=== PATIENT | female | born 1980 | race African-American/Black ===

== ENCOUNTER 2020-04-11 15:45 | Emergency (ER) | payer MEDICAID ==
[~2020-04-11] VITALS: Ht 165.1 cm; Wt 145.1 kg
[~2020-04-11 15:45] MED LIST: BACTRIM DS TAB1 EAC1 ORAL; IBUPROFEN600 MG ORAL; NKM; PRENATAL MULTI1 EAC1 PO
[2020-04-11 15:48] VITALS: BP 175/94
--- NOTE | 2020-04-11 16:00 | NUR ---
pt stated that she started spotting blood about a week ago, the last 3 days she has been having abdominal cramps. she has been to the dr and has taken 2 preg tests that has been positive. pt stated that her dr couldn't tell how far along she was cause her numbers were low.
[2020-04-11 16:54] LABS: ANION GAP 10 mmol/L (5-15); BLOOD UREA NITROGEN 11 mg/dL (7-18); CALCIUM 9.3 MG/DL (8.5-10.1); CARBON DIOXIDE 24 MMOL/L (21-32); CHLORIDE 105 MMOL/L (98-107); CREATININE 0.8 MG/DL (0.55-1.30); POTASSIUM 4.1 MMOL/L (3.5-5.1); SODIUM 139 MMOL/L (136-145)
--- NOTE | 2020-04-11 16:54 | Diagnostic Imaging Report ---
EXAM: US First Trimester , Transabdominal and Transvaginal CLINICAL HISTORY: PAIN TECHNIQUE: Real-time transabdominal and transvaginal obstetrical ultrasound of the maternal pelvis and a first trimester with image documentation. Transvaginal imaging was used for better evaluation of the fetus and adnexa. COMPARISON: None. FINDINGS: Gestation: A gestational saclike structure demonstrated within the uterus with irregular shape and mean sac diameter measuring 4.6 cm. This corresponds to 9 weeks and 5 days. No pole or yolk sac visualized. LMP age is 9 weeks and 4 days with estimated date of delivery of 11/10/2020. The ultrasound estimated age is 9 weeks and 5 days with estimated date of delivery of 11/09/2020. Placenta/amniotic fluid: Cannot be adequately evaluated due to the early gestational age. Uterus/cervix: The uterus measures 9.2 x 6.1 x 7.1 cm. The cervix measures 3.56 cm. No myometrial mass. Ovaries: Bilateral ovaries are not visualized. No adnexal mass. Free fluid: No free fluid. IMPRESSION: 1. Gestational saclike structure with corresponding ultrasound age of 9 weeks and 5 days and estimated date of delivery of 11/09/2020. No pole or yolk sac visualized with slightly irregular contour, a combination of findings suggestive of non-embryonic /blighted ovum. Differential diagnosis includes in progress. Ectopic cannot be entirely excluded. 2. Recommend follow-up with serial hCG measurements along with CAMERA OPERATOR consultation and short interval ultrasound if indicated.
[2020-04-11 16:59] LABS: ALANINE AMINOTRANSFERASE 18 U/L (12-78); ALBUMIN/GLOBULIN RATIO 0.7 (1.0-2.7); ALKALINE PHOSPHATASE 54 U/L (46-116); ASPARTATE AMINO TRANSFERASE 13 U/L (15-37); BILIRUBIN,TOTAL 0.2 MG/DL (0.2-1.0)
--- NOTE | 2020-04-11 17:14 | Emergency Room Report ---
History of Present Illness General Chief Complaint: Complications Source: Patient (Abhijeet Figueroa) Present Illness HPI 39-year-old female who is A2 reporting to be 9 weeks based on [employer]'s, and ultrasound here complaining of 1 week of vaginal spotting which gradually getting heavier as well as abdominal pain. Reports that 3 days ago she also started with some upper back pain and shortness of breath upon moving furniture. Has not taken medication for symptom relief. Denies any fever and chills and chest pain at this time. Denies headache and dizziness. Is compliant with taking vitamins. 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 Reports that she is a tobacco smoker however stopped smoking when she found out she is . Patient is also obese. Denies any recent travel however reports that she has a sedentary lifestyle. Denies any calf tenderness. Denies urinary symptoms. (Abhijeet Figueroa) Allergies: Coded Allergies: No Known Allergies (Unverified , 06/01/12) COVID-19 Screening Contact w/high risk pt: No Experienced COVID-19 symptoms?: No COVID-19 Testing performed ASSISTANT CURATOR: No (Abhijeet Figueroa) Patient History Past Medical History: see triage record Past Surgical History: none Pertinent Family History: none Last Menstrual Period: 02/04/20 Now: Yes - 9 weeks : 5 Para: 2 Immunizations: UTD Reviewed Nursing Documentation: PMH: Agreed; PSxH: Agreed (Abhijeet Figueroa) Nursing Documentation-PMH Past Medical History: No History, Except For (Abhijeet Figueroa) Review of Systems All Other Systems: negative except mentioned in HPI (Abhijeet Figueroa) Physical Exam Vital Signs Date Time Temp Pulse Resp B/P (MAP) Pulse Ox O2 Delivery O2 Flow Rate FiO2 04/11/20 15:48 99.0 99 16 175/94 (121) 96 Room Air Sp02 EP Interpretation: reviewed General Appearance: mild distress Head: normocephalic, atraumatic Eyes: bilateral eye normal inspection, bilateral eye PERRL ENT: no angioedema, normal voice Neck: supple, no meningismus, no bony tend Respiratory: no retraction, no accessory muscle use Cardiovascular #1: regular rate, rhythm, no edema, no murmur Cardiovascular #2: 2+ carotid (R), 2+ carotid (L), 2+ radial (R), 2+ radial (L), 2+ dorsalis pedis (R), 2+ dorsalis pedis (L) Gastrointestinal: non tender, no organomegaly, no peritonitis, no bruit, no guarding, no pulsatile mass Genitourinary: no CVA tenderness Musculoskeletal: back normal, no calf tenderness Neurologic: alert, motor strength/tone normal, oriented x3, sensory intact, responsive, speech normal Psychiatric: judgement/insight normal, memory normal, mood/affect normal, no suicidal/homicidal ideation Skin: no rash Lymphatic: no adenopathy (Abhijeet Figueroa) Medical Decision Making PA Attestation All diagnosis and treatment plans were discussed and reviewed by my supervising physician Dr. Mosqueda (Abhijeet Figueroa) Diagnostic Impression: Primary Impression: Blighted ovum Additional Impressions: Complication of Urinary tract infection during ER Course 39-year-old female who is A2 reporting to be 9 weeks based on [employer]'s, and ultrasound here complaining of 1 week of vaginal spotting which gradually getting heavier as well as abdominal pain. Reports that 3 days ago she also started with some upper back pain and shortness of breath upon moving furniture. Has not taken medication for symptom relief. Denies any fever and chills and chest pain at this time. Denies headache and dizziness. Is compliant with taking vitamins. 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 Reports that she is a tobacco smoker however stopped smoking when she found out she is . Patient is also obese. Denies any recent travel however reports that she has a sedentary lifestyle. Denies any calf tenderness. Denies urinary symptoms. Ddx considered but are not limited to: Ectopic , abdominal pain urine , threatened , spontaneous , pulmonary embolism during , UTI, Vital signs: are WNL, pt. is afebrile H&PE are most consistent with: Blighted ovum, complication of , UTI during ORDERS: UA, urine cx, hCG quantitative, type and screen, CBC, CMP, OB ultrasound, Keflex, Tylenol ED INTERVENTIONS: None required at this time. DISCHARGE: At this time pt. is stable for d/c to home. Will provide printed patient care instructions, and any necessary prescriptions. Care plan and follow up instructions have been discussed with the patient prior to discharge. Patient to follow-up with [employer] patient has an appointment this coming Monday patient imaging results were discussed with [employer] Dr. Aguirre, and per his recommendation patient is to follow-up with her AFTER [employer] DRIVER for further evaluation, possible D&C and also patient was explained that she is going to bleed, spot however if heavy bleeding worsening symptom return to the emergency room (Abhijeet Figueroa) ER Course Shared service note: I was consulted to see the PA/SIDE SEAM ENVELOPE MACHINE OPERATOR regarding the patient's management and disposition. On a [id number] assessment with the patient, she is hemodynamically stable. Differential diagnosis includes, ectopic , hemorrhagic ovarian cyst, threatened , inevitable , fibroids, severe anemia, dysfunctional uterine bleeding, vaginal / uterine mass, among others. test is POSITIVE. Ultrasound was obtained which revealed a nonembryological blighted ovum at 9 weeks. Patient was diagnosed with threatened . I spoke with our OB network relations consultant Dr. Aguirre who recommends patient follow-up with her [employer]IVER as 50% of these blighted ovum need D&C for evacuation. Patient was counseled about these odds and instructed to follow-up in 48 hours for repeat labs and ultrasound. She will also follow-up with her [employer]IVER as scheduled this coming Monday for D&C. Urinalysis had some leukocytes so we will also treat with antibiotics for UTI. Urine culture sent. No evidence of trauma or severe bleeding or distress that would be concerning for placenta previa or placental abruption. Rh status is O positive, Rhogam was not indicated. In regards to patient's complaint of back pain, she has no significant red flags on history or exam. No mechanism for significant trauma. Patient has no vertebral deformity or midline tenderness and has a normal gait. Patient has no significant risk factors for spinal epidural emergency such as fever, IVDU, HIV, or anticoagulant use. Patient is neurologically intact without any lower extremity weakness / numbness, saddle anesthesia, urinary retention or fecal incontinence. No evidence of any emergent process of the spinal cord or cauda equina at this time. She denies any chest pain or anginal equivalent. Doubt PE at this time, however I offered her CT scan of her chest to evaluate for pulmonary embolus given her hypercoagulable state (). Risks, benefits, alternatives were discussed. She refuses CT scan at this time. The patients presentation is not consistent with hemorrhagic ovarian cyst, and has no significant tenderness on exam. Patients hemoglobin is not severely low, vitals are hemodynamically stable, and no symptoms of severe anemia (near syncope, lightheadedness, severe fatigue), no indication for blood transfusion at this time. The patient appears stable for discharge home and follow with PMD in 2 days for reevaluation and further treatment. (Gayatri Mosqueda D.O.) CT/MRI/US Diagnostic Results CT/MRI/US Diagnostic Results : Imaging Test Ordered: OB ultrasound Impression COMPARISON: None FINDINGS: Bones/joints: No displaced fracture or dislocation identified. Joint space is maintained. No bony lesion. Soft tissues: Diffuse prominent soft tissue swelling. IMPRESSION: 1. No displaced fracture or dislocation identified. 2. Diffuse prominent soft tissue swelling. Cellulitis is not excluded. (Abhijeet Figueroa) CT/MRI/US Diagnostic Results : Impression US First Trimester , Transabdominal and Transvaginal COMPARISON: None. FINDINGS: Gestation: A gestational saclike structure demonstrated within the uterus with irregular shape and mean sac diameter measuring 4.6 cm. This corresponds to 9 weeks and 5 days. No pole or yolk sac visualized. LMP age is 9 weeks and 4 days with estimated date of delivery of 11/10/2020. The ultrasound estimated age is 9 weeks and 5 days with estimated date of delivery of 11/09/2020. Placenta/amniotic fluid: Cannot be adequately evaluated due to the early gestational age. Uterus/cervix: The uterus measures 9.2 x 6.1 x 7.1 cm. The cervix measures 3.56 cm. No myometrial mass. Ovaries: Bilateral ovaries are not visualized. No adnexal mass. Free fluid: No free fluid. IMPRESSION: 1. Gestational saclike structure with corresponding ultrasound age of 9 weeks and 5 days and estimated date of delivery of 11/09/2020. No pole or yolk sac visualized with slightly irregular contour, a combination of findings suggestive of non-embryonic /blighted ovum. Differential diagnosis includes in progress. Ectopic cannot be entirely excluded. 2. Recommend follow-up with serial hCG measurements along with [employer] consultation and short interval ultrasound if indicated. Dictated By: Mirta Thao M.D. (Gayatri Mosqueda D.O.) Last Vital Signs Date Time Temp Pulse Resp B/P (MAP) Pulse Ox O2 Delivery O2 Flow Rate FiO2 04/11/20 15:48 99.0 99 16 175/94 (121) 96 Room Air (Abhijeet Figueroa) Disposition: HOME, SELF-CARE Condition: Stable Scripts Acetaminophen* (TYLENOL EXTRA STRENGTH*) 500 Mg Tablet 500 MG ORAL Q8H PRN for Prn Headache/Temp > 101, #30 TAB 0 Refills Prov: Abhijeet Figueroa 04/11/20 Cephalexin* (KEFLEX*) 500 Mg Capsule 500 MG ORAL EVERY 12 HOURS for 7 Days, #14 CAP 0 Refills Prov: Abhijeet Figueroa 04/11/20 Referrals: NON PHYSICIAN (PCP) Patient Instructions: Abdominal Pain During , Sexe-my-Vytp, and Urinary Tract Infection Additional Instructions: Take medication as directed, follow-up with your [employer] DRIVER for discussion in regards to DNC procedure, you will have vaginal spotting and bleeding to that procedure however if any worsening pain, worsening bleeding or any worsening symptoms return to the emergency room. Recommended to have labs and ultrasound repeated in 48 hours. Abhijeet Figueroa Apr 11, 2020 17:14 Gayatri Mosqueda D.O. Apr 12, 2020 21:45
[2020-04-11 17:18] LABS: APPEARANCE,URINE CLEAR; BILIRUBIN, URINE NEGATIVE (NEGATIVE); COLOR,URINE PALE YELLOW; GLUCOSE, URINE (UA) NEGATIVE (NEGATIVE); KETONES,URINE NEGATIVE (NEGATIVE); NITRITE,URINE NEGATIVE (NEGATIVE); PH,URINE 6 (4.5-8.0); PROTEIN,URINE 1+ (NEGATIVE); UROBILINOGEN,URINE NORMAL MG/DL (0.0-1.0)
[2020-04-11 17:27] LABS: BASOPHILS % (AUTO) 1.1 % (0.0-2.0); EOSINOPHILS % (AUTO) 0.9 % (0.0-3.0); HEMATOCRIT 38.8 % (37.0-47.0); HEMOGLOBIN 11.8 G/DL (12.0-16.0); LYMPHOCYTES % (AUTO) 43.3 % (20.0-45.0); MEAN CORPUSCULAR VOLUME 84 FL (80-99); MONOCYTES % (AUTO) 7.2 % (1.0-10.0); NEUTROPHILS % (AUTO) 47.5 % (45.0-75.0); PLATELET COUNT 227 K/UL (150-450); RED CELL DISTRIBUTION WIDTH 17.1 % (11.6-14.8); WHITE BLOOD COUNT 9.9 K/UL (4.8-10.8)
[2020-04-11 17:33] LABS: LEUKOCYTE ESTERASE ,URINE TRACE (NEGATIVE)
[2020-04-11] MEDS ORDERED: CEPHALEXIN500 MG ORAL (17:53)
[2020-04-11] MEDS ORDERED: TYLENOL EXTRA500 MG ORAL (17:53)
== END 2020-04-11 18:00 | disposition home or self-care (01) ==
LOC: EMR 15:59
DX: O26.891 Other specified pregnancy related conditions, first trimester (principal); O02.0 Blighted ovum and nonhydatidiform mole; O23.41 Unspecified infection of urinary tract in pregnancy, first trimester; Z3A.09 9 weeks gestation of pregnancy
CPT/HCPCS: 36415; 76801; 76817; 80053; 81003; 84702; 85025; 86850; 86900; 86901; Z7502; 99284